=== PATIENT | female | born 1980 | race Caucasian/White ===

== ENCOUNTER → 2020-05-18 10:24 | Outpatient (CLI) | payer OTHER, SELFPAY ==
[2020-05-19 02:00] LABS: COVID19 Sendout Not Detected (Not Detect)
== END ==
PROVIDERS: Family Provider Family Medicine Geriatric Medicine; Visit Provider Physician Assistant
DX: Z01.812 Encounter for preprocedural laboratory examination (principal)
CPT/HCPCS: 87635

== ENCOUNTER 2020-05-21 09:41 | Day surgery (SDC) | payer OTHER, SELFPAY ==
[2020-05-17 10:35] VITALS: BMI 29.8
[2020-05-21] VITALS (15 sets, daily range): BP systolic 104–125; BP diastolic 58–83; PULSE 51–80; RESP 10–16; TEMP 36.1–36.5; O2SAT 94–98; BMI 28.8
--- NOTE | 2020-05-21 | PATH_ITS ---
[facility] Accession Number: [id number] . 01 Material submitted: . PART A: peritoneum - PERITONEAL PART B: endometrium - UTERINE CURETTINGS . 02 Diagnosis: A. Peritoneum, Biopsy: Endometriosis. . B. Endometrium, Curettings: Disordered proliferative endometrium. Rare thick-walled vessels are present suggestive of benign polyp. No evidence of neoplasia or hyperplasia. V 05/24/2020 1159 Local . 02 Electronically signed: . Michelle Grant MD, Pathologist NPI- [id number] . 01 Gross description: . A. Received in formalin, labeled with patient identification and peritoneal biopsy, and consists of a yellow-whaley, membranous, and irregular soft tissue piece measuring 2.0 x 0.8 x 0.2 cm. Sectioning reveals yellow-whaley and smooth cut surfaces without any grossly identified discrete masses or lesions. The entire specimen is submitted in one cassette. . SUMMARY OF SECTIONS: . A1 - multiple pieces. . B. Received in formalin, labeled with patient identification and uterine curettings, and consists of multiple whaley to yellow-whaley and irregular soft tissue pieces measuring 2.5 x 2.0 x 0.3 cm in aggregate. The entire specimen is sutured, wrapped, and submitted in two cassettes. . SUMMARY OF SECTIONS: . B1-B2 - multiple pieces each. ([id number]) /FRR 05/22/2020 1257 Local . 02 Pathologist provided ICD-10: N84.0, N80.9 . 02 CPT . 893682, 025707 Performed at: 01 [facility] [address] [place] [address] [facility], [place], [place] [id number] MD Jake Cameron MD Phone: [phone] Performed at: [facility] [address] [place] [id number] MD Michelle Grant MD Phone: [phone]
[2020-05-21] MEDS: GABAPENTIN 300 MG CAPSULE PO (10:28)
[2020-05-21] MEDS: ACETAMINOPHEN 325 MG TABLET 975 MG PO (10:28)
[2020-05-21] MEDS: LACTATED RINGERS 1,000 ML 42 ML IV ×2 (10:28→13:03)
[2020-05-21] MEDS: SCOPOLAMINE 1 PATCH TOP (10:28)
--- NOTE | 2020-05-21 10:50 | PM.PREOP ---
Pre-operative Note COVID-19 COVID-19 status: Negative Result date/Date tested (Pos, Neg/Pending): 05/18/20 Interval Note History & Physical reviewed/Exam performed by Physician: Yes Changes to H&P: Yes H&P completed within 30 days and has changed as indicated here:: Insurance company did not approve chromopertubation
--- NOTE | 2020-05-21 10:54 | PM.GYNHP.1 ---
History of Present Illness History of Present Illness Narrative: Christian Escoto is a 39 year old female with probable endometrioma on and endometrial polyp on ultrasound for laparoscopy with treatment of endometriosis and removal of endometrial polyp if found [facility] Medical History (Updated 05/21/20 @ 10:52 by Monserrat Bynum MD) Cyst (Acute) Hypothyroid (Acute) Pseudocholinesterase deficiency (Acute) Surgical History (Updated 03/12/18 @ 05:06 by Conversion Provider) Status post tonsillectomy and adenoidectomy Social History household members: significant other Smoking Status: Former smoker Meds Home Medications and Allergies Home Medications Medication Instructions Recorded Confirmed Type levothyroxine 75 mcg capsule 75 mcg PO DAILY 04/09/20 05/17/20 History hydrocodone-acetaminophen 2 tab PO Q4-6H PRN #30 tab 05/21/20 Rx Allergies Allergy/AdvReac Type Severity Reaction Status Date / Time Sulfa (Sulfonamide Allergy Unknown Rash as a Verified 05/21/20 10:11 Antibiotics) child fentanyl AdvReac Intermediate Faint/low Verified 05/21/20 10:11 blood pressure Review of Systems Review of Systems Narrative: Patient is a 39-year-old G0 who is been trying to conceive for 2 years who comes in on referral for discussion of ultrasound findings. The ultrasound performed on 01/08/2020 shows a fibroid uterus with a 6 cm submucosal fibroid and a 1.6 cm anterior fundal intramural fibroid. Endometrial thickness of 12 mm with a focally prominent soft tissue within the endometrial cavity suggesting of polyp. Vascular stalk is suggestive but not demonstrated definitively. Unfortunately they did not report on the size of this polyp. Patient has a complex 3.5 cm cyst in her right ovary consistent with an endometrioma at MRI in 2014. Left ovary is normal. Patient states her menses are regular. She bleeds for 7 days. She uses a diva cup that she changes twice a day. She has done research and is not sure that she necessarily wants any surgical procedure on endometrioma this time however after discussion about infertility and endometriosis the patient is willing to consider laparoscopy with removal of endometriosis if found, removal of scar tissue. She is pretty adamant she does not want the endometrioma removed at this time. It has been stable for 5 years apparently. After discussion of options the patient would like to proceed with laparoscopy to evaluate and treat endometriosis and hysteroscopy to remove the polyp if found. Consent form was reviewed with the patient. Possible damage to internal structures such as the bowel, bladder, ureters that might require opening abdomen to repair or additional surgery. Risk for infection. Risk of scar tissue. Probability that her endometriosis would not be cured by the surgery. Patient again adamant she does not want the endometrioma removed at this time. Risk of hysteroscopy of perforating the uterus that could damage to internal structures that could require opening the abdomen to repair or additional surgery. Possibility of continued bleeding despite surgery. Consent form was signed and copy offered to the patient. ROS: Yes All systems reviewed with the patient and are negative except as otherwise documented Exam Vital Signs (past 8 hours): - 05/21/20 10:23 Temperature 97.7 F Pulse Rate 80 Respiratory Rate 12 Blood Pressure 124/83 Pulse Oximetry 94 Oxygen Delivery Method Room Air Narrative Exam Narrative: On physical exam the patient's HEENT exam within normal limits. Lungs are clear to auscultation and percussion. Heart is regular rate and rhythm no S3-S4 or murmurs. Patient was evaluated in January for possible enlarged thyroid and had a normal ultrasound of the thyroid and neck. Abdomen is soft, nontender with no palpable organomegaly. Pelvic exam was not repeated. Extremities without edema and nontender. Assessment & Plan Assessment and plan (1) Preoperative exam for gynecologic surgery: Status: Acute (2) Endometrial polyp: Status: Acute (3) Submucous uterine fibroid: Status: Acute (4) Endometrioma of ovary: Status: Acute (5) Pseudocholinesterase deficiency: Status: Acute Assessment & Plan narrative: Patient with possible endometriosis and possible endometrial polyp for laparoscopic removal of endometriosis and hysteroscopic removal of endometrial polyp if found. COVID-19 COVID-19 status: Negative Result date/Date tested (Pos, Neg/Pending): 05/18/20 Time Spent With Patient Time with patient: less than 15 minutes
[2020-05-21] MEDS: CEFAZOLIN 2 GM/100 ML FROZ.PIGGY IV (11:13)
--- NOTE | 2020-05-21 11:54 | SUR.OPER ---
Lithotomy on padded OR bed, head on pillow, arms secured on padded arm boards at <90 degrees abduction. Legs secured in padded yellow fins stirrups.
--- NOTE | 2020-05-21 12:29 | P.OP_ITS ---
Operative Date/Time/Diagnoses Date of procedure: 05/21/20 Time of procedure: 12:29 Pre-op diagnosis: Probable endometrioma on ultrasound, possible endometrial polyp on ultrasound with menorrhagia Post-op diagnosis: same Procedure & Clinicians Procedure: Laparoscopy with removal of endometriosis. Hysteroscopy D&C Same procedure as scheduled: Yes Indications: Patient with probable endometrioma on ultrasound with dysmenorrhea and menorrhagia. Possible endometrial polyp on ultrasound. Surgeon: Monserrat Bynum Anesthesia Type: General Operative Notes Findings: Small areas of peritoneal endometriosis the most significant on the left bladder reflection which was removed. Small areas of endometriosis on the left ovary were cauterized. Per the patient's request the known cyst was not removed. The patient's liver edge and gallbladder dome appeared normal. The appendix appeared normal. Bowel surface appeared normal. There was no significant adhesions other than some physiological is seizure in of the descending colon near the pelvic brim. A large fibroid was seen obviously distorting the uterus anteriorly near the bladder reflection. No significant endometriosis behind the uterus. No significant scarring or endometriosis of the fallopian tubes. On hysteroscopy the cavity was obviously distorted by the submucous fibroid. There was 1 area that appeared to have a polyp the rest of the endometrium appeared normal. Endometrial biopsy by curettage was performed and tissue sent to pathology. Closure Type: primary Specimen(s): other (Perineal biopsy likely endometriosis, endometrial curettage possible polyp.) Estimated Blood Loss (mL): 5 Blood products transfused: none Procedure in detail: Patient was brought to the operating room where she underwent general anesthesia. She was placed in low [facility] stirrups and prepped and draped in usual sterile fashion. 2 gm Ancef were in prior to beginning of the case. Pulsatile stockings were in place and functional. Warming was with blankets. A single-tooth tenaculum was placed on the anterior lip of the cervix and the cervix dilated to #8 Hegar dilator. The Kelli uterine manipulator was placed and balloon inflated with 3 mL of air. The area of the incisions were injected with half percent Marcaine with epinephrine. An incision was made in the umbilicus with a scalpel and the Verres needle placed in the abdomen. Confirmation of correct placement of the needle was performed by withdrawing on the syringe and then allowing fluid to fall freely through the needle. The abdomen was insufflated to 4 L of CO2. A 5 mm trocar was placed under direct visualization. 2 other 5 mm trochars were placed in the right and left lower quadrant under direct visualization after incising the skin. There did not appear to be any damage with placement of the trocars. The area of probable endometriosis on the left side of the bladder flap was grasped and using cautery set at 30 w the perineum was removed and sent to pathology. Adequate hemostasis was noted. The CO2 was allowed to escape from the abdomen. The trochars were removed. Skin was closed with 4-0 monocryl. Next the hysteroscope was placed through the cervix into the uterus with sorbitol running in. After examining the endometrium a curettage was performed and the curettings were sent to pathology. The patient went to recovery room in good condition. Complications: none Post-operative Condition: stable Disposition: same day surgery Plan for aftercare: Home when awake and stable
[2020-05-21] MEDS: BUPIVACAINE 0.5% W/ EPI (PF) 10 ML VIAL 20 ML INJ (12:33)
[2020-05-21] MEDS: METHYLENE BLUE 50 MG/10 ML VIAL INJ (12:34)
[2020-05-21] MEDS: ONDANSETRON 4 MG/2 ML INJ IV (12:51)
[2020-05-21] MEDS: HYDROMORPHONE 2 MG INJ IV ×2 (13:05→13:12)
[2020-05-21] MEDS: HALOPERIDOL 5 MG/ML VIAL 1 MG IV (13:45)
--- NOTE | 2020-05-21 14:26 | SUR.PHASEII ---
Patient states that she feels better than previously, thanks to administration of haldol for nausea. Patient rates pain 3/10. Dr Bynum to bedside to discuss findings of procedure with patient and significant other. Dressings to abdomen clean, dry and intact. No new bleeding noted to marcos pad. VSS. Allowing patient to rest prior to discharge. [place] form faxed for the 4:50 p[address] [place] ride back to [place].
--- NOTE | 2020-05-21 15:38 | SUR.PHASEII ---
1520 late entry. Patient states complete resolution of nausea and states she is ready to go home. Assisted patient to the bathroom, clean marcos-pad provided. Home with in stable condition. All belongings returned to patient.
== END 2020-05-21 15:25 | disposition home or self-care (01) ==
PROVIDERS: Family Provider Family Medicine Geriatric Medicine; PCP Nurse Practitioner Family; Referring Provider Specialist; Visit Provider Specialist
PROC: (CPT 49320; principal; 2020-05-21 11:15)
DX: N80.3 Endometriosis of pelvic peritoneum (principal); N80.1 Endometriosis of ovary; D25.0 Submucous leiomyoma of uterus; E88.09 Other disorders of plasma-protein metabolism, not elsewhere classified; E03.9 Hypothyroidism, unspecified; Z01.818 Encounter for other preprocedural examination
CPT/HCPCS: 58662; 58558; J0690; J1100; J1170; J1630; J1885; J2250; J2405; J2704; J3010; Q9968

== ENCOUNTER 2025-09-25 10:59 | Inpatient (IN) | payer OTHER, SELFPAY ==
[2025-09-09 10:23] VITALS: BMI 33.1
[2025-09-25] VITALS (14 sets, daily range): BP systolic 125–161; BP diastolic 74–89; PULSE 64–94; RESP 16; TEMP 36.2–37.2; O2SAT 93–98; BMI 31.6
--- NOTE | 2025-09-25 | PATH_ITS ---
[facility] Accession Number: [id number] No. of containers..03 Tissue . 01 Material submitted: . PART A: ovary - OVARIAN ENDOMETRIUM CAPSULE OF RIGHT OVARY PART B: ovary - OVARIAN ENDOMETRIUM WALL OF RIGHT OVARY PART C: uterus - UTERUS, CERVIX AND BILATERAL FALLOPIAN TUBES . 01 Diagnosis: A. OVARIAN ENDOMETRIUM CAPSULE OF RIGHT OVARY, ROBOTIC ASSISTED HYSTERECTOMY WITH BILATERAL SALPINGECTOMY CONVERTED TO OPEN PROCEDURE: Disrupted fragments of hemorrhagic ovarian stroma, nonspecific; no well-preserved epithelial lining identified for further characterization. . B. OVARIAN ENDOMETRIUM WALL OF RIGHT OVARY, ROBOTIC ASSISTED HYSTERECTOMY WITH BILATERAL SALPINGECTOMY CONVERTED TO OPEN PROCEDURE: Ovarian tissue with histologic features consistent with endometriosis. . C. UTERUS, CERVIX, AND BILATERAL FALLOPIAN TUBES, OPEN HYSTERECTOMY WITH BILATERAL SALPINGECTOMY (WEIGHT 466 GRAMS IN AGGREGATE): Cervix with parakeratosis and patchy atypia, favor a reactive etiology. Endocervix with prominent Nabothian gland cysts and otherwise no significant histomorphologic abnormality. Poorly preserved endometrium, favor proliferative phase; negative for endometrioid intraepithelial neoplasia or malignancy. Myometrium with multiple fragmented intramural, subserosal, and submucosal leiomyomas (0.3 to 8.5 cm in greatest dimension); negative for significant cytologic atypia, increased mitotic activity, or necrosis. Uterine serosa with no significant abnormality. Attached fallopian tube, complete cross-sections; poor tissue preservation obscures cytologic detail. Detached fallopian tube, complete cross-sections; poor tissue preservation obscures cytologic detail. [facility] 10/06/2025 1605 Local . 01 Electronically signed: . Anastasia Richardson MD, Pathologist NPI- [id number] . 01 Gross description: . A. Received in formalin with two patient identifiers, and ovarian endometrial capsule of right ovary is a 3-gram, 4.1 x 2.0 x 0.9 cm, red-brown, ragged and disrupted tissue fragment, grossly consistent with a disrupted cyst. The cut surface is hemorrhagic with clotted blood. Excrescences and ovarian parenchyma are not grossly identified. [employer] sections are submitted in A1. B. Received in formalin with two patient identifiers, and ovarian endometrium wall of right ovary is a 2-gram, 2.3 x 2.2 x 0.5 cm disrupted membranous tissue fragment, grossly consistent with a disrupted cyst. The cut surface is fibrotic with minimal adherent clotted blood. Excrescences and ovarian parenchyma are not grossly identified. [employer] sections are submitted in B1. C. Received fresh with two patient identifiers, and uterus, cervix, bilateral fallopian tubes is a fragmented, morcellated uterus and cervix with one separate fallopian tube and one attached fallopian tube. The uterus and cervix are 466 grams with an aggregate dimension of 15.5 x 12.8 x 6.5 cm. Orientation of the specimen cannot be determined due to disruption. The cervix is 3 cm long by 3.5 cm diameter with pink-whaley, focally hemorrhagic ectocervical mucosa and a patent os. There are multiple smooth-walled mucoid-filled endocervical cysts, up to 1 cm. The serosa is pink-whaley, stripped and disrupted. The endometrium is red-whaley, hemorrhagic and edematous, 0.3 cm thick. The myometrium is pink-whaley, moderately trabeculated, and up to 4.5 cm thick. There are multiple, 0.3-8.5 cm, focally fragmented, intramural, subserosal and submucosal nodules. The cut surfaces are white and whorled with no gross evidence of hemorrhage or necrosis. The attached fallopian tube is 6.5 cm long by 0.4 cm diameter. The separate fallopian tube is 4.8 cm long by 0.5 cm diameter. The fallopian tubes are ragged with disrupted fimbriae and unremarkable cut surfaces. [employer] sections are submitted as follows: C1: Opposing cervix. C2-C3: Endomyometrium. C4: [employer] largest myometrial nodule. C5: Additional appeals representative nodules. C6: Attached fallopian tube with entire bisected fimbriae. C7: Separate fallopian tube with entire bisected fimbriae. ([id number]) /MRV 10/05/2025 2100 Local . 01 Pathologist provided ICD-10: D25.1, N80.30 . 01 CPT . 115037, 411337, 822681 Specimen Comment: A courtesy copy of this report has been sent to [phone] Performed at: [address] [id number] MD Jake Cameron MD Phone: [phone]
[2025-09-25] MEDS: LACTATED RINGERS 1,000 ML 42 ML IV ×5 (11:00→21:20)
[2025-09-25] MEDS: SCOPOLAMINE 1 PATCH TOP (11:58)
[2025-09-25] MEDS: ACETAMINOPHEN IV 1,000 MG/100 ML VIAL 400 MG IV ×2 (11:59→18:25)
--- NOTE | 2025-09-25 13:01 | PM.PREOP ---
Pre-operative Note COVID-19 COVID-19 status: Not tested Interval Note History & Physical reviewed/Exam performed by Physician: Yes Changes to H&P: No
--- NOTE | 2025-09-25 13:54 | SUR.OPER ---
Lithotomy on padded OR bed. [place] Pad Positioner under torso. Head on pillow, arms padded and tucked at sides. purple strap across shoulders. Legs secured in padded yellow fins stirrups.
[2025-09-25] MEDS: BUPivacaine 0.25% W/ EPI (PF) 30 ML VIAL INJ (14:04)
--- NOTE | 2025-09-25 17:38 | SUR.OPER ---
Addendum entered by Valerie Abdul RN 09/25/25 20:03: family updated via phone at 1948 by eder rivera Original Note: FAMILY UPDATED VIA PHONE AT [phone]
[2025-09-25] MEDS: TRANEXAMIC ACID 1,000 MG in SODIUM CHLORIDE 0.9% 100 ML 200 MG IV (19:35)
--- NOTE | 2025-09-25 20:37 | P.OP_ITS ---
Operative Date/Time/Diagnoses Date of procedure: 09/25/25 Time of procedure: 13:45 Pre-op diagnosis: Uterine fibroids Chronic pelvic pain Post-op diagnosis: other (Same w/ pelvic endometriosis, extensive pelvic adhesions, possible left ureteral injury intraop) Procedure & Clinicians Procedure: Procedures Operation Date: 09/25/25 12:45 Actual Procedure Side Surgeon p Robotic assisted total laparoscopic, converted to open hysterectomy with bilateral salpingectomy s Lysis of pelvic adhesions, extensive s Ovarian cystectomies, bilateral s Cystoscopy Zach Rogers MD Indications: Christian is a 44-year-old nulligravida, LMP 07/28/2025, who presents with progressive right lower quadrant pain/pressure/abdominal bloating. 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 Patient experienced menarche at age 13 and has had regular predictable menses throughout her life. She is nulligravid due to infertility issues but at this point in her life visit is at [facility] with having no children. Patient's last Pap was 2 weeks ago and was normal. Patient had some abnormals which did not require treatment about 10 years ago but all Paps since then have been negative. Recent pelvic ultrasound performed at [facility], shows the uterus to be enlarged measuring 12.6 x 6.7 x 8.7 cm. It is described as bulky secondary to multiple fibroids. The largest fibroid is subserosal measuring up to 8-1/2 cm and was previously 7.9 cm. The endometrium measures up to 1.0 cm in thickness. The right ovary measures 5.2 x 3.0 x 4.3 cm with a few small follicles noted. The left ovary measures 4.8 x 2.8 x 4.1 cm also containing a few small follicles. . Neither adnexa demonstrate any suspicious masses and there is no abnormal free fluid in the pelvis or abdomen. Attempts for endometrial sampling were unsuccessful due to cervical stenosis. After consideration of all options, the patient desires to move forward with robotic assisted total laparoscopic hysterectomy and bilateral salpingectomy with preservation of ovaries. She presents today for her scheduled surgery. Surgeon: Zach Rogers Chocolatier: Opal Rabago Anesthesia Type: General Operative Notes Findings: The uterus is markedly enlarged to approximately 14 weeks in aggregate size. There were multiple fibroids within the substance of the uterus but the largest fibroid measuring approximately 10 cm in diameter involves the entire lower uterine segment creating an ovoid mass that fills the pelvis. Both ovaries de monstrate changes consistent with surface endometriosis and both ovaries contain multiple endometriomas. There are extensive adhesions involving the left pelvic sidewall to the lateral aspect of the uterus with what appeared to be some parasitic vessels extending from the of uterine fibroid on the left side deep in the pelvis. There did not appear to be significant peritoneal endometriosis in either the anterior or the posterior cul-de-sacs. Cystoscopy showed no injury to the bladder blood extended visualization fail to demonstrate flow of urine from the left ureteral meatus which was not well seen at the time of cystoscopy. An IVP in the OR prior to closure was attempted but was inconclusive re: ureteral integrity on the left side. The patient will be admitted overnight and have a CT IVP performed in the morning to rule out ureteral injury.. Closure Type: primary Specimen(s): left tube, right tube, uterus (With multiple fibroids) and other (Ovarian cyst capsules, bilateral) Applied: catheter and other Estimated blood loss (mL): 1,200 Blood products transfused: packed red blood cells (1 unit) Procedure in detail: With the patient under satisfactory general anesthesia in the modified dorsal lithotomy position, the vagina perineum, and abdomen were prepped and draped in the usual manner robotically assisted total laparoscopic hysterectomy bilateral salpingectomy. A pre-surgical safety time-out was then taken in accordance with [facility] OR protocols. Dumont catheter was inserted in the bladder and connected to closed drainage. A bivalve speculum was placed in the vagina and the cervix visualized. A 1. PDS was placed on the anterior lip of the cervix and the endocervical canal was dilated with considerable difficulty to 5 mm. A [employer] uterine manipulator with a large cup was then inserted and placed appropriately The skin immediately superior to the umbilicus was infiltrated with 0.25% Marcaine and an 8 mm transverse incision was made through that area. A varies needle was then used to insufflate abdomen carbon dioxide and once insufflated, an 8 mm trocar and sleeve placed through the incision. Correct placement of the trocar of the abdominal cavity was confirmed by direct v isualization. A 2nd 8 mm trocar and sleeve was then placed in left mid quadrant after infiltration of the skin and subcutaneous tissues, a 3rd 8 mm trocar was then placed in the right mid quadrant after infiltration of the skin and subcutaneous tissues, and a 4th 8 mm trocar was then placed in the right lower quadrant after infiltration of the skin and subcutaneous tissue. An accessory port using a 5 mm cannula was then placed between and superior to 3rd and 4th ports. The robot was then docked per protocol with vessel sealer, fenestrated bipolar grasper, and monopolar scissors available for use. Inspection of the pelvis revealed the findings as noted above. The right ovary was mobilized and adhesions from the ovary to the posterior lateral aspect of the uterus on the right were coagulated and divided with the vessel sealer. Evidence of endometriotic involvement was evident on both ovaries. Attention was then turned to the left adnexa which was much more densely adherent to both the posterolateral aspect of the uterus as well as the pelvic sidewall. The ureter on the right was visualized all the way down to the insertion of the uterosacral ligament on the right as that area was relatively free of adhesions. Inspection of the ureter on the left side however was not possible in its entire length due to adhesions involving the sidewall of the pelvis to the uterus as well as the left adnexa. The left fallopian tube was elevated and the mesosalpinx taken down with the vessel sealer to its full length. Sharp and blunt dissection serosal adhesions at the edge of the uterus on the left was then carried out, relying primarily on blood dissection rather than sharp or using monopolar scissors. Limited exposure of the sidewall was possible due to the size and shape of the uterus. Dissection was carried out downward on the left side as far as could safely be performed at that point and attention was then turned to the right. The right fallopian tube was then elevated, and the mesosalpinx taken with the vessel sealer. The dissection was then carried downward across the round ligament on the right down to the level of the bladder reflection which was mobilized with a transverse incision at the level of the cervico- vesical reflection. The bladder was advanced and attention was then turned to the left side which could only be mobilized very slightly even with the assistance of the [employer] manipulator. Because of the bulk of the fibroid in the lower uterine segment, attempts were made to enucleate the largest fibroid which was successful to a degree but bleeding prevented full debulking of this fibroid and the decision was made to convert to an open procedure. The robot was undocked and the patient re-prepped/draped for laparotomy. A 15 cm transverse Pfannenstiel incision was then made and carried down to the deep fascia. The deep fascia was incised transversely, the rectus abdominis bluntly, and the peritoneal cavity entered without difficulty. An Korey self-retaining retractor was then placed and the uterus grasped with Benny clamps. The uterus was then mobilized up into the Korey and morcellation initiated with the assistance of a scalpel and handheld LigaSure device for hemostasis. The uterus was slowly debulked and fibroids removed submitted as an aggregate specimen. The left side of the uterus was adherent to the lateral sidewall and dissection was carried out in away confined to the immediate surface of the uterus on the left side to as to finally free it up from the sidewall adhesions. At that point the bulk of the uterus was able to be amputated leaving only the cervix in place. The distal edge of the cervix was then palpated and a scalpel used to enter the vagina in the midline. Ana Paula scissors were then used to excise the cervix and Chemo clamps were placed along the vaginal mucosa circumferentially. The vaginal cuff was then closed with 0 Vicryl interrupted in euasin-ox-ylbts stitches and hemostasis was easily achieved. The pelvis was thoroughly irrigated and inspection for areas of bleeding. Small areas of bleeding were noted and controlled easily with judicious use of monopolar caute ry. The raw surface area from lysis of adhesions was carefully inspected and also found to be relatively hemostatic after application of pressure but Surgicel powder was applied to the area to achieve complete hemostasis. Attention was then turned to the ovaries, 1st on the right than the left. The right ovary was incised with monopolar current and a large endometrioma was encountered. The wall of the endometrioma could not be from the underlying stroma and was instead destroyed judicious use of monopolar current. Hemostasis of the ovary itself was easily achieved and the ovary was wrapped in a layer of Surgicel. Attention was then turned to the left ovary which was managed in a similar manner with another large endometrioma encountered within its substance. Just like the right ovary, the cyst wall could not be from underlying stroma and was destroyed therefore with judicious use of monopolar current. One ludrcs-kn-kqwia stitch with 3-0 Monocryl was required to achieve complete hemostasis of the left ovary. Pelvis was irrigated again and preparations made for cystoscopy to assure bilateral ureteral integrity. Cystoscopy demonstrated an intact bladder with vigorous spillage of clear urine from the right ureteral orifice but the left ureteral orifice was never seen to spill urine raising concern for possible obstruction/injury. Methylene blue was administered intravenously but no spill could be documented. Performance of an IVP was requested in OR but no Urology cassandra consultant was available for retrograde studies or repair. Isovue 300 was administered but findings were ambiguous therefore decision was made to go ahead and close. The fascia of the Pfannenstiel incision was then closed with a running 1. Vicryl. The subcutaneous tissues brought together with 2-0 Vicryl in a running stitch and the skin edges brought together with 4-0 Monocryl in a subcuticular closure. Steri-Strips were applied and the laparoscopy port incisions were all then closed with 4-0 Monocryl using inverted interrupted stitches. Appropriate dressings were applied, the patient was awakened from anesthesia, and the patient transferred to the PACU for a period of observation tolerated procedure well. Complications: other (Conversion from robotic hysterectomy to open hysterectomy, possible left ureteral injury intraop) Post-operative Condition: stable Disposition: PACU Plan for aftercare: CT IVP in a.m. with plans for further evaluation/treatment based on the results of those findings.
[2025-09-25 20:53] LABS: Add Manual Diff / Slide Review NO; Hematocrit 31.3 % (36-46); Hemoglobin 10.6 g/dL (12.0-16.0); Lymphocytes Absolute Auto 500 /uL (1100-4500); Mean Corpuscular HGB Conc 34.0 % (30-36); Mean Corpuscular Hemoglobin 31.3 PG (26-34); Mean Corpuscular Volume 92.1 fL (80-100); Platelet Count 193 X10^3/uL (150-400)
[2025-09-25] MEDS: ONDANSETRON 4 MG/2 ML INJ IV (20:55)
[2025-09-25] MEDS: METOCLOPRAMIDE 10 MG/2 ML INJ IV (21:05)
[2025-09-25] MEDS: LACTATED RINGERS 1,000 ML 100 ML IV (22:33)
[2025-09-26] VITALS (7 sets, daily range): BP systolic 119–138; BP diastolic 65–92; PULSE 75–92; RESP 16–20; TEMP 37.2–37.4; O2SAT 91–96
[2025-09-26] MEDS: DOCUSATE 100 MG CAPSULE 200 MG PO ×3 (00:40→21:16)
[2025-09-26] MEDS: ACETAMINOPHEN 325 MG TABLET 650 MG PO ×4 (00:40→23:21)
[2025-09-26] MEDS: ONDANSETRON 4 MG/2 ML INJ IV (05:20)
[2025-09-26 06:16] LABS: Add Manual Diff / Slide Review NO; Hematocrit 29.8 % (36-46); Hemoglobin 10.4 g/dL (12.0-16.0); Lymphocytes Absolute Auto 1000 /uL (1100-4500); Mean Corpuscular HGB Conc 34.9 % (30-36); Mean Corpuscular Hemoglobin 32.0 PG (26-34); Mean Corpuscular Volume 91.7 fL (80-100); Platelet Count 186 X10^3/uL (150-400)
[2025-09-26 06:20] LABS: Blood Urea Nitrogen 14 mg/dL (7-17); Calcium 7.3 mg/dL (8.4-10.2); Carbon Dioxide 20 mmol/L (22-32); Chloride 106 mmol/L (98-107); Estimated Glomerular Filt Rate > 60 mL/min (>60); Glucose 123 mg/dL (70-99); HEMOLYSIS < 15 (0-50); Potassium 4.6 mmol/L (3.4-5.1); Sodium 133 mmol/L (137-145)
--- NOTE | 2025-09-26 08:00 | DI.CT.S_ITS ---
PROCEDURE: CT ABDOMEN PELVIS WO/W CON INDICATIONS: R/O left ureteral injury intraop 09/25/2025 TECHNIQUE: After the administration of oral contrast, 5 mm thick sections acquired from the diaphragms to the iliac crests. After the administration of intravenous contrast, 5 mm thick sections acquired from the diaphragms to the symphysis. 5 mm thick coronal and sagittal reformats were acquired. For radiation dose reduction, the following was used: automated exposure control, adjustment of mA and/or kV according to patient size. COMPARISON: None. FINDINGS: Image quality: Diagnostic. Lower Chest: Dependent atelectasis in the bilateral lower lobes. ABDOMEN: Liver: No solid mass. Gallbladder: Vicarious excretion of contrast. Biliary ducts: No biliary dilation. Pancreas: No ductal dilation. Spleen: Size is within normal limits. Adrenal Glands: No adrenal nodules. Kidneys and Ureters: Extravasation of x-ray Nhan phase-contrast into the pelvis and abrupt termination of contrast within the left ureter which is dilated near the UVJ. Right ureter decompressed. Mild left hydronephrosis. Perinephric fluid on the left greater than the right. No right hydronephrosis. No discrete renal lesion. Delayed nephrogram on the left. Stomach and Bowel: Normal colonic caliber, without significant wall thickening. Normal appendix. Peritoneum: Trace free intraperitoneal fluid and foci of free intraperitoneal air. Ventral Wall: Extraperitoneal air and foci of air within in the anterior abdominal wall Abdominal Nodes: No retroperitoneal or mesenteric adenopathy by size criteria. Vessels: Aorta and inferior vena cava are normal in size. PELVIS: Pelvic Organs: Hysterectomy. Bladder: Decompressed by Dumont catheter. Pelvic Nodes: No enlarged lymph nodes. Miscellaneous: No inguinal hernias are seen. Presacral fluid. Foci of fluid and air in the pelvis. Dense fluid along the anterior could represent hemoperitoneum. Bones: No aggressive osseous abnormality. IMPRESSION: Extravasation of excretory phase renal contrast from the distal left ureter consistent with perforation. Left hydroureter and mild hydronephrosis with delayed nephrogram on the left and no contrast seen at the UVJ on the left consistent with distal stricture, obstruction, or discontinuity. Small hematoma in the pelvis along left ureter. Dictated by: Isaías Gleason M.D. on 09/26/2025 at 9:16 Approved by: Isaías Gleason M.D. on 09/26/2025 at 9:25
[2025-09-26] MEDS: LACTATED RINGERS 1,000 ML 100 ML IV ×2 (08:51→18:33)
[2025-09-26] MEDS: BENZOCAINE/MENTHOL 1 LOZ PKT 1 EACH PO (08:51)
--- NOTE | 2025-09-26 09:02 | PM.PNPO.1 ---
Subjective Subjective Date Patient Seen: 09/26/25 Time Patient Seen: 09:02 Interval history: Christian had a reasonably good 1st postop night and has been out of bed this morning. No nausea and vomiting and she has started to pass gas. Bowel sounds diminished present. Abdomen nondistended. Incisions/dressing clean and dry. Exam Vital Signs (past 8 hours): - 09/26/25 05:00 09/26/25 07:00 Temperature 99.1 F 99.4 F Pulse Rate 92 H 91 H Respiratory Rate 20 16 Blood Pressure 119/72 120/65 Pulse Oximetry 95 96 Oxygen Flow Rate 0 Oxygen Delivery Method Room Air Oxygen Flow Rate 0 Const General: cooperative and comfortable Nutritional Appearance: average body habitus Orientation: alert and oriented x3 HENMT Head: normal to inspection, atraumatic and abrasion Ears: hearing grossly normal bilaterally Face and sinus: face symmetric Eyes General: appearance normal, both eyes and all related structures Conjunctivae: conjunctivae normal Sclera: sclerae normal EOM: EOM intact bilaterally Neck Neck: normal visual inspection Resp Effort & Inspection: normal respiratory effort and able to speak in complete sentences Auscultation: clear to auscultation bilaterally Cardio Rate: regular rate Rhythm: regular rhythm Heart Sounds: S1 normal, S2 normal and no murmurs GI Inspection: normal to inspection and incision (Surgical dressings clean and dry) Palpation: soft, no hepatosplenomegaly and tender (Mild, diffuse postsurgical tenderness) External Female Exam: other (No significant bleeding noted) Extrem General: no calf tenderness Psych Appearance: grossly normal Mental Status: mental status grossly normal Speech and Movement: speech and movement normal Mood: congruent mood Affect: normal affect Attitude: cooperative Thought Process: normal Thought Content: normal Judgment: judgment good Objective Imaging CT IVP: My impression: Contrast extravasation, distal ureter, left with mild hydronephrosis Radiologist's impression: Pending Labs 09/26/25 05:11 09/26/25 05:11 Labs: Laboratory Results - last 24 hr 09/25/25 09/25/25 09/26/25 16:29 19:34 05:11 WBC 13.4 H 10.4 RBC 3.40 L 3.25 L Hgb 10.6 L 10.4 L Hct 31.3 L 29.8 L MCV 92.1 91.7 MCH 31.3 32.0 MCHC 34.0 34.9 RDW 14.3 14.5 Plt Count 193 186 Neut % (Auto) 87.5 H 78.0 H Lymph % (Auto) 3.6 L 9.5 L [place] % (Auto) 8.7 12.3 Eos % (Auto) 0.0 L 0.0 L Baso % (Auto) 0.2 0.2 Neut # (Auto) 96154 H 8100 H Lymph # (Auto) 500 L 1000 L [place] # (Auto) 1200 H 1300 H Eos # (Auto) 0 0 Baso # (Auto) 0 0 Sodium 133 L Potassium 4.6 Chloride 106 Carbon Dioxide 20 L BUN 14 Creatinine 1.02 Estimated GFR > 60 BUN/Creatinine Ratio 13.7 Glucose 123 H Calcium 7.3 L Blood Type A Positive Antibody Screen Negative Crossmatch See Detail PFSH Medical History Cyst Hypothyroid Pseudocholinesterase deficiency Surgical History Status post tonsillectomy and adenoidectomy Social History household members: significant other Smoking Status: Current some day smoker Assessment & Plan Post-op Postoperative Procedures: Procedures Operation Date: 09/25/25 12:45 Actual Procedure Side Surgeon p Robotic assisted total laparoscopic, converted to open hysterectomy with bilateral salpingectomy s Lysis of adhesions, pelvic, extensive s Ovarian cystectomies, bilateral (endometriomas) s Cystoscopy Zach Rogers MD Postoperative day: 1 Postoperative status: other (Postop ureteral injury, left) Postoperative plan: other (Will contact on-call urology which is Dr. Pascual Laboy at the [facility] regarding transfer and appropriate interventions for intraoperative ureteral injury sustained to the left ureter during surgery yesterday) Postoperative plan narrative: Case discussed with Dr. Dylon Guadalupe, Urology, who was not available yesterday but will be available tomorrow and will plan to further evaluate the patient in the operating room with plans for surgical correction of left ureteral injury as indicated. Time Spent With Patient Time with patient: Greater than 35 minutes
--- NOTE | 2025-09-26 15:52 | CM.DANOTE ---
Patient is a 44 yo female who was admitted INPT Status on 09/25/25 for planned Lap Hyst. Pt has [employer] HO for insurance and her PCP is [facility]. EMR was reviewed. Per OBGYN, plan of lap hyst turned to open hyst with complications. Pt currently with camarena cath and potential for hospital transfer. Urology Consult and current plan for Urology procedure tomorrow Sun for repair. Patient lives at home in [place] with her spouse and is active and independent at baseline. Discharge needs unclear at this time. SW to follow closely tomorrow after Urological procedure to determine discharge planning needs or if hospital transfer needed. 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 No Advance Directives No on File History Provided By Patient,Medical Record Has Patient been No admitted in last 30 days? Prior Living House Arrangements Household Members significant other Type of Drives own vehicle transporation used prior to admit Independent with ADL Yes 's Is patient alert and Yes oriented? Barriers to Yes Discharge Comment Lives on Sunday Discharge Plan Home Transportation If safe for home, spouse to transport back to [place] Additional Comment Pending progress and further surgery Sun Review Status In Process Please Provide Date 09/26/25 Initial DC Assessment Was Performed Next Review Type Continued Stay Review Pre-Anesthesia Assessment Start: 09/09/25 10:23 Freq: Status: Active Protocol: Document 09/09/25 10:23 CAB (Rec: 09/09/25 10:33 CAB [id number]) Pre-Anesthesia Assessment Information obtained Chart review via Height 165.1 cm Weight 90.265 kg Body Mass Index (BMI 33.1 ) Has patient seen a Yes specialist in last 12 months? If yes, specialist Financial Data Analyst seen Does patient have None history of Is patient on No anticoagulant therapy? Does patient have a No distance education teacher? Does patient have No history of a pacemaker/ICD? Cardiac Clearance Not Applicable Received Does patient have None history of Does patient have Yes: See comment below history of Sleep Apnea? Comment Sleep study visit 08/17/22 - Home study 2021 results most consistent with less than significant obstructive sleep apnea. Therefore, if the patient?s symptoms of sleep apnea continue to be significant, would recommend the patient be scheduled for a repeat attended sleep study Does patient have No any memory problems? Does patient have No history of kidney/ liver problems/ disease? Does patient have No Diabetes? Insulin pump or No continuous glucose monitor? GLP-1? No Does patient have Yes history of thyroid problems? Is patient ? No Is patient No ? Smoking status Current some day smoker
--- NOTE | 2025-09-26 17:30 | P.PN_ITS ---
Subjective Subjective Date Patient Seen: 09/26/25 Time Patient Seen: 17:30 Interval history: Patient doing well through the day. No nausea and vomiting, ambulating to the bathroom and in her room. Abdominal pain consistent with postoperative status. + flatus. Incisions/dressing claen and dry. Exam Vital Signs (past 8 hours): - 09/26/25 15:00 Pulse Oximetry 96 Oxygen Delivery Method Room Air Oxygen Flow Rate 0 Oxygen Delivery Method Room Air Oxygen Flow Rate 0 Narrative Exam Narrative: Unchanged from AM Objective Labs 09/26/25 05:11 09/26/25 05:11 Labs: Laboratory Results - last 24 hr 09/25/25 09/25/25 09/26/25 16:29 19:34 05:11 WBC 13.4 H 10.4 RBC 3.40 L 3.25 L Hgb 10.6 L 10.4 L Hct 31.3 L 29.8 L MCV 92.1 91.7 MCH 31.3 32.0 MCHC 34.0 34.9 RDW 14.3 14.5 Plt Count 193 186 Neut % (Auto) 87.5 H 78.0 H Lymph % (Auto) 3.6 L 9.5 L [place] % (Auto) 8.7 12.3 Eos % (Auto) 0.0 L 0.0 L Baso % (Auto) 0.2 0.2 Neut # (Auto) 27764 H 8100 H Lymph # (Auto) 500 L 1000 L [place] # (Auto) 1200 H 1300 H Eos # (Auto) 0 0 Baso # (Auto) 0 0 Sodium 133 L Potassium 4.6 Chloride 106 Carbon Dioxide 20 L BUN 14 Creatinine 1.02 Estimated GFR > 60 BUN/Creatinine Ratio 13.7 Glucose 123 H Calcium 7.3 L Blood Type A Positive Antibody Screen Negative Crossmatch See Detail [facility] Medical History Cyst Hypothyroid Pseudocholinesterase deficiency Surgical History Status post tonsillectomy and adenoidectomy Social History household members: significant other Smoking Status: Current some day smoker Assessment & Plan Post-op Postoperative Procedures: Procedures Operation Date: 09/25/25 12:45 Actual Procedure Side Surgeon p Robotic assisted total laparoscopic, converted to open hysterectomy with bilateral salpingectomy s Lysis of pelvic adhesions, extensive s Ovarian cystectomies, bilateral s Cystoscopy Zach Rogers MD Postoperative day: 1 Postoperative status: other Postoperative status narrative: While patient is relatively asymptomatic, imaging demonstrates evidence of ureteral injury impossible secondary ureteral injury at ureterovesical junction. Findings reviewed with Dr. Dylon Guadalupe and will plan to evaluate in OR with surgical correction of ureteral injuries in a.m.. Postoperative plan narrative: We had an extensive discussion involving the patient and her Geovanny kennedy and they understand the rationale for moving forward with intraoperative evaluation of potential ureteral injury with plans for cystoscopy with retrograde pyelogram, and probable surgical exploration to evaluate and/or repair potential ureteral and ureterovesical junction injuries. Surgery scheduled for 0900 tomorrow morning, OR aware, and specific requirements for the procedure have been conveyed to OR staff. Time Spent With Patient Time with patient: 25 - 35 minutes
[2025-09-27] VITALS (19 sets, daily range): BP systolic 102–136; BP diastolic 57–75; PULSE 75–101; RESP 11–78; TEMP 36.8–38.3; O2SAT 91–97
--- NOTE | 2025-09-27 | DI.RAD.S_ITS ---
PROCEDURE: XR ABDOMEN MIN 2V INDICATIONS: STENT PLACEMENT TECHNIQUE: 2 views of the abdomen were acquired. COMPARISON: [facility], CT, CT ABDOMEN PELVIS WO/W CON, 09/26/2025, 8:06. FINDINGS: Fluoroscopic images of the abdomen demonstrates opacification of the left ureter and placement of double-J ureteral stent. Contrast opacifies a mildly dilated left upper renal collecting system. As noted on comparison CT, there appears to be extra luminal extravasation of injected contrast from the left ureter. Contrast is noted within the peritoneal cavity as evidence by contrast outlining margins of adjacent bowel. IMPRESSION: Interval placement of left ureteral stent. Redemonstration of findings consistent with perforation of the distal 3rd left ureter with extravasation of contrast into the peritoneal cavity. Dictated by: Tc Zaragoza M.D. on 09/28/2025 at 16:10 Approved by: Tc Zaragoza M.D. on 09/28/2025 at 16:15
[2025-09-27] MEDS: LACTATED RINGERS 1,000 ML 100 ML IV ×3 (03:52→20:51)
[2025-09-27] MEDS: ACETAMINOPHEN 325 MG TABLET 650 MG PO (05:12)
[2025-09-27 06:41] LABS: Add Manual Diff / Slide Review NO; Hematocrit 24.5 % (36-46); Hemoglobin 8.5 g/dL (12.0-16.0); Lymphocytes Absolute Auto 1100 /uL (1100-4500); Mean Corpuscular HGB Conc 34.9 % (30-36); Mean Corpuscular Hemoglobin 32.1 PG (26-34); Mean Corpuscular Volume 91.9 fL (80-100); Platelet Count 134 X10^3/uL (150-400)
[2025-09-27 06:48] LABS: Blood Urea Nitrogen 11 mg/dL (7-17); Calcium 7.6 mg/dL (8.4-10.2); Carbon Dioxide 24 mmol/L (22-32); Chloride 108 mmol/L (98-107); Estimated Glomerular Filt Rate 56 mL/min (>60); Glucose 106 mg/dL (70-99); HEMOLYSIS < 15 (0-50); Potassium 3.9 mmol/L (3.4-5.1); Sodium 135 mmol/L (137-145)
--- NOTE | 2025-09-27 08:46 | PM.CN.IH.1 ---
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 She was noted to have a bulky uterus with multiple fibroids and underwent a robotic assisted, converted to open, hysterectomy with bilateral salpingectomy on 25 Sep 2025. Her procedure was notable for concern for left ureteral injury, however, no Urology consultation was immediately available. Her CT IVP on 26 Sep 2025 was notable for left mild hydronephrosis with extravasation of contrast from the distal left ureter as well as concern for obstruction of the left ureter at the left UVJ. Meds Home Medications and Allergies Home Medications ?Medication ?Instructions ?Recorded ?Confirmed ?Type No Known Home Medications 09/01/25 09/25/25 History Allergies Allergy/AdvReac Type Severity Reaction Status Date / Time Sulfa (Sulfonamide Allergy Unknown Rash as a Verified 09/25/25 11:30 Antibiotics) child fentanyl AdvReac Intermediate Faint/low Verified 09/25/25 11:30 blood pressure Review of Systems Review of Systems Narrative: A complete ROS was completed with all pertinent positives and negatives documented in HPI. All other systems were reviewed and are negative. Exam Vital Signs (past 8 hours): - 09/27/25 07:00 Temperature 98.9 F Pulse Rate 101 H Respiratory Rate 16 Blood Pressure 120/71 Pulse Oximetry 92 Oxygen Delivery Method Room Air Oxygen Flow Rate 0 Narrative Exam Narrative: GEN: Alert and oriented X3. No acute distress. Well-nourished. EYES: PERRLA, EOMI. HENT: Moist mucus membranes, no scleral icterus, normal neck ROM. RESP: Unlabored breathing, equal rise and fall of chest bilaterally, no cyanosis appreciated. CV: No peripheral edema, unremarkable heart rate. ABD: Soft, mildly distended, appropriately tender to palpation, incisions covered with bandages. EXT: No edema, clubbing or cyanosis. SKIN: No rashes or lesions. NEURO: No focal neurologic deficits, CN II-XII grossly intact. PSYCH: Cooperative, appropriate mood and affect. Objective Labs 09/27/25 05:41 09/27/25 05:41 Labs: Laboratory Results - last 24 hr 09/27/25 05:41 WBC 10.9 RBC 2.67 L Hgb 8.5 L Hct 24.5 L MCV 91.9 MCH 32.1 MCHC 34.9 RDW 14.3 Plt Count 134 L Neut % (Auto) 80.2 H Lymph % (Auto) 10.3 L Burt % (Auto) 9.1 Eos % (Auto) 0.2 L Baso % (Auto) 0.2 Neut # (Auto) 8800 H Lymph # (Auto) 1100 Burt # (Auto) 1000 H Eos # (Auto) 0 Baso # (Auto) 0 Sodium 135 L Potassium 3.9 Chloride 108 H Carbon Dioxide 24 BUN 11 Creatinine 1.23 H Estimated GFR 56 L BUN/Creatinine Ratio 8.9 Glucose 106 H Calcium 7.6 L PFSH Medical History Pseudocholinesterase deficiency Hypothyroid Cyst Surgical History Status post tonsillectomy and adenoidectomy Social History household members: significant other Tobacco & Substance Use Smoking Status: Current some day smoker Assessment & Plan Assessment and plan (1) Hydronephrosis, left: Status: Acute Plan: 44 y/o nulligravida F who was noted to have progressive right lower quadrant pain, pressure and abdominal bloating. She was noted to have a bulky uterus with multiple fibroids and underwent a robotic assisted, converted to open, hysterectomy with bilateral salpingectomy on 25 Sep 2025. Her procedure was notable for concern for left ureteral injury, however, no Urology consultation was immediately available. Her CT IVP on 26 Sep 2025 was notable for left mild hydronephrosis with extravasation of contrast from the distal left ureter as well as concern for obstruction of the left ureter at the left UVJ. Discussed the need for a cystoscopy, possible left retrograde ureteropyelogram and open repair of likely left ureteral injury. Discussed risks of the procedure to include but not limited to pain, bleeding, infection, poor cosmesis, fascial dehiscence, blood transfusion, persistent bladder urinary extravasation requiring prolonged catheter usage and/or placement of bilateral PCN's or an IR drain, injury to either ureteral orifice requiring a ureteral stent or ureteral reimplantation or bilateral PCN's, injury to bowel requiring resection and reanastomosis with the assistance of General Surgery or a colostomy or ileostomy creation with the hopes of being able to reverse this in the future, injury to blood vessels leading to life-threatening bleeding, inherent risks of anesthesia, ureteral stricture development. Informed consent was obtained today. Time-Based Coding :: [TOTAL MINUTES] spent with patient and on the chart (including review of chart, obtaining history, exam, reviewing outside data, placing orders, documenting exam and treatment plan, and counseling patient) on [DATE]. PROFEE Charge Codes Inpatient or Observation consultation: [id number]
[2025-09-27] MEDS: LACTATED RINGERS 1,000 ML 42 ML IV ×2 (09:14→13:17)
--- NOTE | 2025-09-27 10:03 | SUR.OPER ---
Lithotomy on padded OR bed, head on pillow, arms secured on padded arm boards at <90 degrees abduction, left wrist supported on rolled towel. Legs secured in padded yellow fins stirrups.
--- NOTE | 2025-09-27 10:04 | SUR.OPER ---
Addendum entered by Linda Acosta RN 09/28/25 14:44: Second portion of procedure patient was re-prepped with povidone iodine prep kit. Third portion of procedure: Returned to lithotomy on padded OR bed, head on pillow, arms secured on padded boards at <90 degrees abduction; safety belt to upper torso; re-prepped and re-draped. Original Note: Second portion of procedure: Re-draped, Supine on padded OR bed, head on pillow, arms secured on padded arm boards at <90 degrees abduction, legs uncrossed, safety belt at thigh, tape over blanket over lower legs.
--- NOTE | 2025-09-27 12:45 | P.OP_ITS ---
Operative Date/Time/Diagnoses Date of procedure: 09/27/25 Time of procedure: 09:00 Pre-op diagnosis: Left ureteral injury Post-op diagnosis: same Procedure & Clinicians Procedure: Exploratory laparotomy Cystoscopy Left retrograde ureteropyelogram Left ureteral stent placement Intraoperative interpretation of fluoroscopic images, total time < 1 hour Same procedure(s) as scheduled: Yes Indications: 44 y/o nulligravida F who was noted to have progressive right lower quadrant pain, pressure and abdominal bloating. She was noted to have a bulky uterus with multiple fibroids and underwent a robotic assisted, converted to open, hysterectomy with bilateral salpingectomy on 25 Sep 2025. Her procedure was notable for concern for left ureteral injury, however, no Urology consultation was immediately available. Her CT IVP on 26 Sep 2025 was notable for left mild hydronephrosis with extravasation of contrast from the distal left ureter as well as concern for obstruction of the left ureter at the left UVJ. Discussed the need for a cystoscopy, possible left retrograde ureteropyelogram and open repair of likely left ureteral injury. Discussed risks of the procedure to include but not limited to pain, bleeding, infection, poor cosmesis, fascial dehiscence, blood transfusion, persistent bladder urinary extravasation requiring prolonged catheter usage and/or placement of bilateral PCN's or an IR drain, injury to either ureteral orifice requiring a ureteral stent or ureteral reimplantation or bilateral PCN's, injury to bowel requiring resection and reanastomosis with the assistance of General Surgery or a colostomy or ileostomy creation with the hopes of being able to reverse this in the future, injury to blood vessels leading to life-threatening bleeding, inherent risks of anesthesia, ureteral stricture development. Surgeon: Dylon Guadalupe Assisted?: Yes Social Media Campaign Manager: Zach Rogers Anesthesia Type: General Operative Notes Findings: Left ureteral occlusion secondary to vaginal cuff closure, unremarkable cystoscopy Closure Type: primary Specimen(s): none sent Applied: catheter Estimated Blood Loss (mL): 50 Blood products transfused: packed red blood cells (1 unit) Procedure in detail: After administration of general anesthetic, this patient was placed in an extended dorsal lithotomy position. The lower abdomen and genitalia were then prepped, and draped in a sterile fashion. A surgical time-out was performed in standard fashion with all in the room in agreement. A 21Fr cystoscope was then inserted into her bladder and complete cystoscopy was performed. No concerning masses or lesions were noted, outside of puckering of her posterior bladder wall immediately superior to her left ureteral orifice. Bilateral ureteral orifices were noted to be orthotopic in nature. The left ureteral orifice was noted to have active peristalsis, however, no efflux was appreciated. An attempt was made to advance a 0.035 sensor tip ureteral guidewire into her left ureteral orifice and up into her left renal pelvis, however, extreme resistance was appreciated less than 2cm into her distal left ureter. The cystoscope was then removed and a 16Fr camarena catheter was inserted into her bladder. 10cc of sterile water was utilized for balloon insufflation. Her previous Pfannenstiel incision was then incised. Dissection continued using a combination of blunt and sharp dissection to open the subcutaneous and fascial layers. The rectus abdominus was then split in the midline along the previous area of dissection. The skin incision was extended 2cm laterally on each end of the original incision. The previous sutures used for closure were all removed from her incision. The bookwalter retractor was then brought onto the operating table and secured in standard fashion. The bowel was then packed into her upper abdomen to allow for exposure of her vaginal cuff. Her left ureter was unable to be definitively visualized secondary to a combination of her body habitus and the aforementioned Pfannenstiel incision despite maximal exposure attempts. The left side of her vaginal cuff closure was then taken down and cystoscopy was repeated. The aforementioned puckering of her posterior bladder wall immediately superior to her left ureteral orifice had resolved. Her left ureter was noted to have clear efflux. The left ureteral orifice was then easily cannulated using a 5Fr ureteral catheter over a 0.035 sensor tip ureteral guidewire. A left retrograde ureteropyelogram was then performed which noted no left hydronephrosis and no initial contrast extravasation. The ureteral guidewire was then readvanced through the ureteral catheter and into her left renal pelvis. The ureteral catheter was removed next and a 6Fr multi-length ureteral stent without strings was advanced over the guidewire and into the left renal pelvis. Upon removal of the ureteral guidewire, a good curl was appreciated proximally via fluoroscopically and visually within the bladder. A very small amount of contrast extravasation was appreciated distally. The cystoscope was then removed and the 16Fr camarena catheter was reinserted into her bladder. 10cc of sterile water was utilized for balloon insufflation. Dr. Rogers then closed the vaginal cuff vaginally using 3 figure of 8 stitches of 0- Vicryl. The pelvis was then reinspected and no active bleeding was appreciated. Despite multiple attempts, the left ureteral stent was not able to be visualized, however, it was easily palpable. Surgicell powder was then placed down in the pelvis for hemostasis. Hemostasis was evaluated at case end and noted to be excellent. The fascial layer was closed using 1 Vicryl in a running fashion. The subcutaneous tissue were reapproximated using 2-0 Vicryl in a running fashion. Skin was then closed using a skin stapler. A total of 20cc of Exparel was utilized for anesthetic throughout the case. Anesthesia was reversed, she was extubated in the operating room and transferred to the PACU in stable condition for recovery. Complications: none Post-operative Condition: stable Disposition: Acute Care Plan for aftercare: Management of her care by Gynecology team.
[2025-09-27 13:32] LABS: Hematocrit 28.2 % (36-46); Hemoglobin 9.6 g/dL (12.0-16.0)
[2025-09-27] MEDS: ONDANSETRON 4 MG/2 ML INJ IV ×2 (13:37→20:50)
--- NOTE | 2025-09-27 14:37 | PC.NURSE ---
pt to room 211 from pacu 1425, sleepy, responds to questions, denies pain, vss, 02 on 4Lnc sats 96%, abd bandaids x5 cdi with lower abd aquacell drsg. Dumont placed in OR draining clear pink tinted uring. SCDS placed, call light within reach. at BS
--- NOTE | 2025-09-27 15:38 | CM.DPC ---
DCP Cont: Per Urologist Consult, pt taken to OR with assist of OBGYN for cystoscopy and repair of ureteral injury and off the floor for a few hours and returned to floor and recovering with supportive spouse bedside and camarena cath in place. Discharge needs unclear at this time. SW to follow closely to confirm safe plan home with spouse back to [place] and any further identified discharge planning needs. MARTINEZ Serna
--- NOTE | 2025-09-27 17:00 | PC.NURSE ---
pt awake alert and oriented x4, taking bites of dinner, denies pain I feel great weaning 02 down to 3lnc 92%.
--- NOTE | 2025-09-27 19:03 | PC.NURSE ---
1830 pt admitted to rm 207 for obs, Htn systolic greater than 200, tele nsr pt denies cp or sob, did not take his home meds today and son wittnessed 45 min of pt having difficulty with speech, now resolved. oriented to room and hospital call light within reach and son at BS, NIH 0, tele SB pvc's rate 55.
--- NOTE | 2025-09-27 20:43 | PM.PNPO.1 ---
Subjective Subjective Date Patient Seen: 09/27/25 Time Patient Seen: 18:55 Interval history: Christian is doing extremely well following her surgery earlier today. No N&V. No significant vaginal bleeding. VSS and afebrile. Exam Vital Signs (past 8 hours): - 09/27/25 12:52 09/27/25 12:55 09/27/25 13:00 Temperature 98.9 F Pulse Rate 86 84 81 Respiratory Rate 16 14 14 Blood Pressure 102/60 113/61 116/63 Pulse Oximetry 92 93 91 Oxygen Delivery Method Oximask Oximask Oximask Oxygen Flow Rate 6 6 6 09/27/25 13:05 09/27/25 13:10 09/27/25 13:30 Temperature Pulse Rate 80 80 83 Respiratory Rate 14 14 16 Blood Pressure 119/66 136/75 124/71 Pulse Oximetry 93 93 95 Oxygen Delivery Method Oximask Nasal Cannula Oxygen Flow Rate 6 6 4 09/27/25 13:35 09/27/25 13:43 09/27/25 13:45 Temperature Pulse Rate 78 76 77 Respiratory Rate 11 L 16 16 Blood Pressure 118/68 108/60 116/62 Pulse Oximetry 95 95 95 Oxygen Delivery Method Nasal Cannula Nasal Cannula Nasal Cannula Oxygen Flow Rate 4 4 4 09/27/25 13:59 09/27/25 14:08 09/27/25 14:35 Temperature 99.0 F Pulse Rate 76 80 81 Respiratory Rate 11 L 14 16 Blood Pressure 115/59 L 117/57 L 119/69 Pulse Oximetry 95 96 96 Oxygen Delivery Method Nasal Cannula Nasal Cannula Oxygen Flow Rate 4 4 09/27/25 15:21 09/27/25 15:54 09/27/25 17:39 Temperature 98.3 F 98.3 F 98.9 F Pulse Rate 78 75 78 Respiratory Rate 16 16 78 H Blood Pressure 111/72 118/72 109/65 Pulse Oximetry 96 97 92 Oxygen Delivery Method Oxygen Flow Rate Oxygen Delivery Method Nasal Cannula Oxygen Flow Rate 4 Const General: cooperative and comfortable Nutritional Appearance: average body habitus Orientation: alert and oriented x3 HENMT Head: normal to inspection, atraumatic and abrasion Ears: hearing grossly normal bilaterally Face and sinus: face symmetric Eyes General: appearance normal, both eyes and all related structures Conjunctivae: conjunctivae normal Sclera: sclerae normal EOM: EOM intact bilaterally Resp Effort & Inspection: normal respiratory effort and able to speak in complete sentences GI Inspection: normal to inspection, distended (Minimal) and incision (Surgical dressings clean and dry) Palpation: soft, no hepatosplenomegaly and tender (Mild, diffuse postsurgical tenderness) Auscultation: hypoactive bowel sounds External Female Exam: other (No significant bleeding noted) Extrem General: no calf tenderness Psych Appearance: grossly normal Mental Status: mental status grossly normal Speech and Movement: speech and movement normal Mood: congruent mood Affect: normal affect Attitude: cooperative Thought Process: normal Thought Content: normal Judgment: judgment good Objective Labs 09/27/25 13:28 09/27/25 05:41 Labs: Laboratory Results - last 24 hr 09/25/25 09/27/25 09/27/25 16:29 05:41 13:28 WBC 10.9 RBC 2.67 L Hgb 8.5 L 9.6 L Hct 24.5 L 28.2 L MCV 91.9 MCH 32.1 MCHC 34.9 RDW 14.3 Plt Count 134 L Neut % (Auto) 80.2 H Lymph % (Auto) 10.3 L Marin % (Auto) 9.1 Eos % (Auto) 0.2 L Baso % (Auto) 0.2 Neut # (Auto) 8800 H Lymph # (Auto) 1100 Marin # (Auto) 1000 H Eos # (Auto) 0 Baso # (Auto) 0 Sodium 135 L Potassium 3.9 Chloride 108 H Carbon Dioxide 24 BUN 11 Creatinine 1.23 H Estimated GFR 56 L BUN/Creatinine Ratio 8.9 Glucose 106 H Calcium 7.6 L Blood Type A Positive Antibody Screen Negative Crossmatch See Detail [facility] Medical History Pseudocholinesterase deficiency Hypothyroid Cyst Surgical History Status post tonsillectomy and adenoidectomy Social History household members: significant other Smoking Status: Current some day smoker Assessment & Plan Post-op Postoperative Procedures: Procedures Operation Date: 09/25/25 12:45 Actual Procedure Side Surgeon p Robotic assisted total laparoscopic, converted to open hysterectomy with bilateral salpingectomy s Lysis of adhesions, extensive s Bilateral ovarian cystectomies (endometriomas) s Cystoscopy Zach Rogers MD Operation Date: 09/27/25 09:00 Actual Procedure Side Surgeon p Cystoscopy w/ Ureteral Procedure Retrogrades, open repair of left ureteral injury, stent placement Left Dylon Guadalupe, DO Postoperative status: doing well Postoperative plan narrative: Recheck CBC in AM and plan for progressive ambulation as tolerated. We had an extended discussion re: intraoperative findings and the cause for UVJ obstruction relieved by releasing 3 cuff stitches and reclosure of cuff vaginally. Anticipate probable discharge AM 09/29/25.
[2025-09-27] MEDS: DOCUSATE 100 MG CAPSULE 200 MG PO (20:49)
[2025-09-27] MEDS: MORPHINE 4 MG/ML INJ IV (21:00)
[2025-09-28] MEDS: ONDANSETRON 4 MG/2 ML INJ IV ×4 (05:00→20:26)
[2025-09-28] MEDS: ACETAMINOPHEN 325 MG TABLET 650 MG PO ×4 (06:00→18:43)
[2025-09-28 06:09] LABS: Add Manual Diff / Slide Review NO; Hematocrit 24.3 % (36-46); Hemoglobin 8.3 g/dL (12.0-16.0); Lymphocytes Absolute Auto 1700 /uL (1100-4500); Mean Corpuscular HGB Conc 34.4 % (30-36); Mean Corpuscular Hemoglobin 31.6 PG (26-34); Mean Corpuscular Volume 92.0 fL (80-100); Platelet Count 128 X10^3/uL (150-400)
[2025-09-28] MEDS: LACTATED RINGERS 1,000 ML 100 ML IV (07:12)
[2025-09-28] MEDS: DOCUSATE 100 MG CAPSULE 200 MG PO ×2 (10:28→20:26)
--- NOTE | 2025-09-28 12:47 | PM.PNPO.1 ---
Subjective Subjective Date Patient Seen: 09/28/25 Time Patient Seen: 12:47 Exam Vital Signs (past 8 hours): Oxygen Delivery Method Room Air Oxygen Flow Rate 0 Narrative Exam Narrative: General- AAO x3, NAD lungs- unlabored breathing abdomen- soft, non distended incisions-- skin intact, no drainage, johnny intact-- no erythema Objective Labs 09/28/25 16:05 09/27/25 05:41 Labs: Laboratory Results - last 24 hr 09/25/25 09/27/25 09/28/25 16:29 13:28 05:22 WBC 9.9 RBC 2.64 L Hgb 9.6 L 8.3 L Hct 28.2 L 24.3 L MCV 92.0 MCH 31.6 MCHC 34.4 RDW 14.4 Plt Count 128 L Neut % (Auto) 73.8 Lymph % (Auto) 16.7 L Buchanan % (Auto) 8.8 Eos % (Auto) 0.4 L Baso % (Auto) 0.3 Neut # (Auto) 7300 H Lymph # (Auto) 1700 [place] # (Auto) 900 Eos # (Auto) 0 Baso # (Auto) 0 Crossmatch See Detail [facility] Medical History Pseudocholinesterase deficiency Hypothyroid Cyst Surgical History Status post tonsillectomy and adenoidectomy Social History household members: significant other Smoking Status: Current some day smoker Assessment & Plan Post-op Postoperative Procedures: Procedures Operation Date: 09/25/25 12:45 Actual Procedure Side Surgeon p Robotic assisted total laparoscopic, converted to open hysterectomy with bilateral salpingectomy, right oophorectomy, cystoscopy Zach Rogers MD Operation Date: 09/27/25 09:00 Actual Procedure Side Surgeon p Cystoscopy w/ Ureteral Procedure Retrogrades, open repair of left ureteral injury, stent placement Left Dylon Guadalupe DO Postoperative day: 1 Postoperative status: doing well Postoperative status narrative: Patient is a 44yo F s/p Robotic TLH converted to open Abdominal hysterectomy with bilateral salpingectomy and left ovarian cystectomy and right oophorectomy of complicated by left ureteral injury. Open repair of left ureteral injury and stent placement on POD 2. Now POD 1 from the final ureteral repair and stent placment. 1. Post op - doing well - meeting post op milestones - + spontaneous urination and + flatus - Hgb 8.3 this am--> repeat 8.5 (stable) - motrin held due to low platelets but pain well controlled on tylenol and oxycodone prn 2. Left Ureteral stent in place - continue Macrobid 100mg daily while in place - paitent to follow up with urology for removal dispo- patient desires discharge home tomorrow in the am, has ferry scheduled at 1330 Rx Oxycodone, Macrobid 100mg daily, colace, pyridium sent to pharmacy plan to return for post op check in 1 week for staple removal Postoperative plan: routine post-op care and ambulate Time Spent With Patient Time with patient: less than 15 minutes
[2025-09-28 16:19] LABS: Add Manual Diff / Slide Review NO; Hematocrit 24.8 % (36-46); Hemoglobin 8.5 g/dL (12.0-16.0); Lymphocytes Absolute Auto 1500 /uL (1100-4500); Mean Corpuscular HGB Conc 34.3 % (30-36); Mean Corpuscular Hemoglobin 31.7 PG (26-34); Mean Corpuscular Volume 92.5 fL (80-100); Platelet Count 146 X10^3/uL (150-400)
--- NOTE | 2025-09-28 19:21 | PC.NURSE ---
Patient up with assistance today, ambulated in halls with assistance and walker. MD removed dressings and left incisions FISH NET STRINGER. Patient able to void after camarena was removed this morning. Patient has been passing gas. Encouraged to continue deep breathing, fluid intake and activity as tolerated. Patient anticipating going home tomorrow with her . Coordinator able to provide priority pass at bedside.
[2025-09-28 20:00] VITALS: BP 123/81; PULSE 99; RESP 20; TEMP 36.7; O2SAT 91
[2025-09-29] MEDS: ACETAMINOPHEN 325 MG TABLET 650 MG PO ×3 (00:14→10:55)
[2025-09-29] MEDS: ONDANSETRON 4 MG/2 ML INJ IV ×3 (00:16→10:55)
[2025-09-29 07:00] VITALS: BP 143/85; PULSE 76; RESP 17; TEMP 36.5; O2SAT 95
--- NOTE | 2025-09-29 08:10 | P.DS_ITS ---
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 Patient experienced menarche at age 13 and has had regular predictable menses throughout her life. She is nulligravid due to infertility issues but at this point in her life visit is [facility] with having no children. Patient's last Pap was 2 weeks ago and was normal. Patient had some abnormals which did not require treatment about 10 years ago but all Paps since then have been negative. Recent pelvic ultrasound performed at [facility], shows the uterus to be enlarged measuring 12.6 x 6.7 x 8.7 cm. It is described as bulky secondary to multiple fibroids. The largest fibroid is subserosal measuring up to 8-1/2 cm and was previously 7.9 cm. The endometrium measures up to 1.0 cm in thickness. The right ovary measures 5.2 x 3.0 x 4.3 cm with a few small follicles noted. The left ovary measures 4.8 x 2.8 x 4.1 cm also containing a few small follicles. . Neither adnexa demonstrate any suspicious masses and there is no abnormal free fluid in the pelvis or abdomen. Attempts for endometrial sampling were unsuccessful due to cervical stenosis. After consideration of all options, the patient desires to move forward with robotic assisted total laparoscopic hysterectomy and bilateral salpingectomy with preservation of ovaries. She was admitted 09/25/2025 for her scheduled surgery. Discharge Providers Provider Date of admission: 09/25/25 10:59 Discharge Date: 09/29/25 Primary care physician: Pura Hair MD Consults: 09/26/25 21:04 Consult to Urology Routine Comment: Consulting Provider: Zach Rogers Reason for consultation: Inroperative left ureteral injury Has provider been notified: Yes Discharge provider: Zach Rogers MD Summary Hospital Course Discharge Diagnosis: Uterine fibroids Menometrorrhagia Chronic pelvic pain Status post robotically assisted total laparoscopic hysterectomy with bilateral salpingectomy which required conversion to open total abdominal hysterectomy with bilateral salpingectomy Post hysterectomy hydronephrosis due to ureteral injury, left Status post exploratory laparotomy and cystoscopy with passage of left ureteral stent Hospital Course: Christian was admitted on 09/25/2025 and underwent scheduled total laparoscopic hysterectomy with bilateral salpingectomy at that time. During the course of the surgery, because of the bulk of the uterus and the position of a large lower uterine segment fibroid the surgery could not be completed robotically and therefore the surgery was instead completed with an open Pfannenstiel incision and total abdominal hysterectomy. The surgery itself was quite challenging due to the bulk of the fibroid in the relatively narrow/deep pelvis. Following completion of the surgery, cystoscopy was performed to rule out ureteral injury and no urinary flow from the left ureter to be documented. Unfortunately at the completion of the case, no urologic consultation was available in-house and the patency of the ureter itself could not be confirmed despite attempts at performing an IVP intraoperatively. The decision was made to close the patient and evaluate with CT KUB the following morning which showed there was very slight extravasation of dye from the left ureter but significant hydronephrosis on the left side. Preparations were made to transfer the patient to the [facility] for further evaluation and probable surgery but our urology colleagues, Dr. Dylon Guadalupe, had been contacted on the evening of 09/25/2025 and would be returning to the area on the evening of 09/26/2025 so could participate in her surgery on 09/27/2025 rather than having to transfer the patient to [facility]. On the morning of 09/27/2025 therefore the patient underwent re-exploration at which time it was discovered that there were perhaps 1 or 2 stitches at the left side of the vaginal cuff that were impinging upon the ureter and preventing flow through the ureter into the bladder and also preventing retrograde passage of a ureteral stent. Those stitches were released and replaced transvaginally with careful palpation of the ureteral stent which had been able to be placed after release of the stitches. Contrast studies showed that there was minimal extravasation of contrast from the ureter was felt as though passing the ureteral stent would be sufficient to allow the small defect apparent in the ureter to heal spontaneously. The surgery was completed uneventfully and the details of that procedure well summarized on Dr. Guadalupe's note of that date. Following her surgery, the patient has done extremely well with prompt return of bowel and bladder function, she is ambulating independently, tolerating regular diet, and her pain is well relieved with oral pain medications. She will be discharged at this time to home in an afebrile normotensive condition after counseling regarding limited adhesions of activity, precautionary symptoms, medications, and plans for follow-up which will be in 1 week for staple removal. Her follow-up will also include visits with Dr. Guadalupe with removal of the left ureteral stent planned in the next few weeks. Medications at discharge will include Pyridium 200 mg p.o. b.i.d.-t.i.d. For bladder discomfort and she will reinitiate any medication she was taking prior to admission. Status at Discharge Cognitive/behavioral status at discharge: oriented Functional status at discharge: independent ambulation Overall status at discharge: patient is progressing back to baseline Time Spent with Patient Time spent: Less than 30 minutes Exam Vital Signs (past 8 hours): Oxygen Delivery Method Room Air Oxygen Flow Rate 0 Const General: cooperative and comfortable Nutritional Appearance: average body habitus Orientation: alert and oriented x3 HENMT Head: normal to inspection, atraumatic and abrasion Ears: hearing grossly normal bilaterally Face and sinus: face symmetric Eyes General: appearance normal, both eyes and all related structures Conjunctivae: conjunctivae normal Sclera: sclerae normal EOM: EOM intact bilaterally Neck Neck: normal visual inspection Resp Effort & Inspection: normal respiratory effort and able to speak in complete sentences Auscultation: clear to auscultation bilaterally Cardio Rate: regular rate Rhythm: regular rhythm Heart Sounds: S1 normal, S2 normal and no murmurs GI Inspection: normal to inspection and incision (Surgical dressings clean and dry) Palpation: soft, no hepatosplenomegaly and tender (Mild, diffuse postsurgical tenderness) Auscultation: normoactive bowel sounds External Female Exam: other (No significant bleeding noted) Extrem General: no calf tenderness Psych Appearance: grossly normal Mental Status: mental status grossly normal Speech and Movement: speech and movement normal Mood: congruent mood Affect: normal affect Attitude: cooperative Thought Process: normal Thought Content: normal Judgment: judgment good Objective Labs 09/28/25 16:05 09/27/25 05:41 Labs: Laboratory Results - last 24 hr 09/28/25 16:05 WBC 10.6 RBC 2.68 L Hgb 8.5 L Hct 24.8 L MCV 92.5 MCH 31.7 MCHC 34.3 RDW 14.7 Plt Count 146 L Neut % (Auto) 76.0 H Lymph % (Auto) 14.4 L Ralls % (Auto) 8.2 Eos % (Auto) 0.9 L Baso % (Auto) 0.5 Neut # (Auto) 8000 H Lymph # (Auto) 1500 Ralls # (Auto) 900 Eos # (Auto) 100 Baso # (Auto) 100 PFSH Medical History Pseudocholinesterase deficiency Hypothyroid Cyst Surgical History Status post tonsillectomy and adenoidectomy Social History household members: significant other Discharge Assessment & Plan Assessment and Plan Assessment: Uterine fibroids Menometrorrhagia Chronic pelvic pain Status post robotically assisted total laparoscopic hysterectomy with bilateral salpingectomy which required conversion to open total abdominal hysterectomy with bilateral salpingectomy Post hysterectomy hydronephrosis due to ureteral injury, left Status post exploratory laparotomy and cystoscopy with passage of left ureteral stent Plan of Treatment: Routine postoperative care with plans for follow-up in 1 week or as needed. Discharge Plan Discharge Plan Patient Disposition: Home Provider Discharge Comment: Please review the written instructions you received when you were discharged from the hospital. Your follow-up appointment is scheduled for one-week after discharge and I look forward to seeing you then. If however in the meanwhile you have any issues, concerns, or questions, please contact me either through the office phone at [phone], or via the patient portal. Discharge orders & Medications Prescriptions: New docusate sodium 100 mg Capsule 200 mg PO BID 20 Days Qty: 30 1RF phenazopyridine [Pyridium] 200 mg tablet 200 mg PO BID Qty: 30 1RF Follow up/Referrals: Pura Hair MD [Primary Care Provider, Family Practice] Zach Rogers MD [Physician, LITERACY EDUCATION PROFESSOR] Discharge Health Status Multidrug resistant organism: No MDRO Diet/Activity/Treatments Diet: Diet as Tolerated Activity: As tolerated Other treatments: [id number] Tylenol and/or ibuprofen may be used as needed for additional pain relief. Axre-[id number]-[id number] stool softeners and/or MiraLax may be used as needed for constipation. Skin/Wound/Dressing Care Report to your healthcare provider any signs of infection, such as:: chills, fever, increased pain, unusual drainage and unusual redness Dressing: N/A Visit Report/Discharge Packet Instructions: DI for Cystoscopy, DI for Hysterectomy, DI for Laparoscopy, DI for Prescription Opioid Use, DI for Ureteral Stent Placement Discharge Data Primary Care Provider: Pura Hair PROFEE Charge Codes Discharge inpatient/observation: [id number]
[2025-09-29] MEDS: DOCUSATE 100 MG CAPSULE 200 MG PO (10:20)
[2025-09-29] MEDS: SODIUM CHLORIDE 0.9% FLUSH 10 ML IV (10:56)
--- NOTE | 2025-09-29 11:07 | CM.DPNOTE ---
DCP note CASH REGISTER BALANCER reviewed EMR per provider, cleared to dc home. per chart review/RN report, no new needs. P: plan to dc home with spouse support and OP f/u. no identified barriers to safe dc home. MARTINEZ Juarez
--- NOTE | 2025-09-29 12:45 | PC.NURSE ---
Discharge instructions reviewed with patient, she states understanding and has no further questions or concerns at this time. Patient has follow up scheduled. Patient escorted out via wheelchair to discharge to home with her .
--- NOTE | 2025-11-09 10:25 | PM.GYNHP.1 ---
History of Present Illness History of Present Illness Narrative: Christian is a 44-year-old nulligravida, LMP 07/28/2025, who presents with progressive right lower quadrant pain/pressure/abdominal bloating. 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 Patient experienced menarche at age 13 and has had regular predictable menses throughout her life. She is nulligravid due to infertility issues but at this point in her life visit is at [facility] with having no children. Patient's last Pap was 2 weeks ago and was normal. Patient had some abnormals which did not require treatment about 10 years ago but all Paps since then have been negative. Recent pelvic ultrasound performed at [facility], shows the uterus to be enlarged measuring 12.6 x 6.7 x 8.7 cm. It is described as bulky secondary to multiple fibroids. The largest fibroid is subserosal measuring up to 8-1/2 cm and was previously 7.9 cm. The endometrium measures up to 1.0 cm in thickness. The right ovary measures 5.2 x 3.0 x 4.3 cm with a few small follicles noted. The left ovary measures 4.8 x 2.8 x 4.1 cm also containing a few small follicles. . Neither adnexa demonstrate any suspicious masses and there is no abnormal free fluid in the pelvis or abdomen. Although the patient's uterine fibroids do not seem to be causing significant disruption in her menstrual cycles or flow, she is having steadily increasing pelvic pressure abdominal bloating, and right lower quadrant pain. We had a extended discussion about uterine fibroids, contributing factors to their development, and all options for treatment including but not limited to hormonal therapy, radiofrequency transvaginal ablation of the fibroid, uterine artery embolization, myomectomy, and hysterectomy with ovarian preservation. We also talked about the possibility of removing the right ovary at the time of any surgery or removing an endometrioma should it be found within the substance of the ovary. Endometrial sampling attempted 09/01/2025 but access to the endometrial cavity could not be achieved due to the TAMMIE fibroid and no sampling was possible. After consideration of all options, patient wishes to proceed with robotically assisted total labaroscopic hysterectomy and bilateral salpingectomy and bilateral ovarian preservation if at all possible. She presents today for her scheduled surgery. [facility] Medical History Pseudocholinesterase deficiency Hypothyroid Cyst Surgical History Status post tonsillectomy and adenoidectomy Social History household members: significant other Meds Home Medications and Allergies Home Medications ?Medication ?Instructions ?Recorded ?Confirmed ?Type docusate sodium 100 mg capsule 200 mg (2 x 100 mg) PO BID 20 days 09/28/25 Rx #30 caps phenazopyridine 200 mg tablet 200 mg PO BID pain 30 doses #30 09/28/25 Rx (Pyridium) tabs Allergies Allergy/AdvReac Type Severity Reaction Status Date / Time succinylcholine Allergy Severe muscle Verified 09/27/25 09:09 paralysis Sulfa (Sulfonamide Allergy Unknown Rash as a Verified 09/25/25 11:30 Antibiotics) child mivacurium Allergy muscle Verified 09/27/25 09:09 paralysis fentanyl AdvReac Intermediate Faint/low Verified 09/25/25 11:30 blood pressure Review of Systems Review of Systems Narrative: Problem-specific ROS positives included in HPI Exam Vital Signs (past 8 hours): Oxygen Delivery Method Room Air Oxygen Flow Rate 0 Const General: cooperative and comfortable Nutritional Appearance: average body habitus Orientation: alert and oriented x3 HENMT Head: normal to inspection, atraumatic and abrasion Ears: hearing grossly normal bilaterally Face and sinus: face symmetric Eyes General: appearance normal, both eyes and all related structures Conjunctivae: conjunctivae normal Sclera: sclerae normal EOM: EOM intact bilaterally Neck Neck: normal visual inspection Resp Effort & Inspection: normal respiratory effort and able to speak in complete sentences Auscultation: clear to auscultation bilaterally Cardio Rate: regular rate Rhythm: regular rhythm Heart Sounds: S1 normal, S2 normal and no murmurs GI Inspection: normal to inspection Palpation: soft, no hepatosplenomegaly, mass (Uterus palpable at pubis) and No tender General: bladder normal to palpation External Female Exam: normal external appearance Speculum Exam - Vagina: no lesions Speculum Exam - Cervix: normal appearance of the cervix, cervical os open and no lesions Bimanual Exam- Vagina & Uterus: normal palpation, bladder normal to palpation, enlarged (10-12 weeks, globular), not fixed, nodular and tender (Mild, duplicates pelvic pain) Bimanual Exam- Adnexa, other: normal, tender bilaterally and other (Unable to assess due to uterine bulk) OB/External & Speculum: cervical os open Extrem General: no calf tenderness Psych Appearance: grossly normal Mental Status: mental status grossly normal Speech and Movement: speech and movement normal Mood: congruent mood Affect: normal affect Attitude: cooperative Thought Process: normal Thought Content: normal Judgment: judgment good Objective Labs 09/28/25 16:05 09/27/25 05:41 Assessment & Plan Assessment and plan (1) Submucous uterine fibroid: Status: Acute (2) Endometrioma of ovary: Status: Acute (3) Chronic pelvic pain in female: Status: Acute Plan Patient counseled re: alternatives, risks, benefits, and potential complications associated with robotically assisted total laparoscopic hysterectomy and bilateral salpingectomy. She was reassured that every effort will be made to preserve both ovaries but if absolutely necessary the right ovary and worst case both ovaries my require removal. With full understanding of the above, a written consent was executed, signed, and witnessed preoperatively on 09/25/2025. Time-Based Coding :: [TOTAL MINUTES] spent with patient and on the chart (including review of chart, obtaining history, exam, reviewing outside data, placing orders, documenting exam and treatment plan, and counseling patient) on [DATE].
== END 2025-09-29 11:38 | disposition home or self-care (01) | DRG 519 ==
LOC: OR 21:58 → AC 09-26 11:17 → OR 09-28 06:26 → AC 09-28 06:26
PROVIDERS: Nurse Anesthetist, Certified Registered; Urology; Admitting Provider Obstetrics & Gynecology; Family Provider Family Medicine Geriatric Medicine; PCP Family Medicine; Referring Provider Family Medicine; Visit Provider Obstetrics & Gynecology
PROC: 0UT94ZZ Resection of Uterus, Percutaneous Endoscopic Approach (ICD-10-PCS; principal; 2025-09-25 12:45)
PROC: 0T778DZ Dilation of Left Ureter with Intraluminal Device, Via Natural or Artificial Opening Endoscopic (ICD-10-PCS; principal; 2025-09-27 09:00)
DX: D25.0 Submucous leiomyoma of uterus (principal); N80.30 Endometriosis of pelvic peritoneum, unspecified; N80.103 Endometriosis of bilateral ovaries, unspecified depth; N73.6 Female pelvic peritoneal adhesions (postinfective); D25.2 Subserosal leiomyoma of uterus; Y83.8 Other surgical procedures as the cause of abnormal reaction of the patient, or of later complication, without mention of misadventure at the time of the procedure; N13.30 Unspecified hydronephrosis; N99.81 Other intraoperative complications of genitourinary system; F17.200 Nicotine dependence, unspecified, uncomplicated; N92.1 Excessive and frequent menstruation with irregular cycle
CPT/HCPCS: 36415; 36430; 58150; 58661; 74019; 74178; 76000; 80048; 81025; 85014; 85018; 85025; 86850; 86900; 86901; P9016; C2617; J0131; J0666; J0689; J1100; J1171; J1720; J1885; J2250; J2272; J2405; J2704; J2765; J3010; J3490; J7050; J7120; Q0138; Q9967